=== PATIENT | male | born 2000 ===

== ENCOUNTER 2022-10-31 13:49 | Outpatient (CLI) | payer BC, SELFPAY ==
[2022-10-31 13:25] LABS: Albumin* 4.6 g/dL (3.3-5.0); Chloride* 108 mmol/L (96-114); Sodium* 140 mmol/L (135-149)
[2022-10-31 13:26] LABS: Potassium* 4.8 mmol/L (3.6-5.1)
[2022-10-31 13:28] LABS: Alanine Aminotransferase* 31 U/L (4-50); Alkaline Phosphatase* 63 U/L (40-150); Aspartate Amino Transferase* 26 U/L (12-35); Bilirubin Total* 1.1 mg/dL (0.1-1.5); Blood Urea Nitrogen* 19 mg/dL (5-24); Carbon Dioxide* 23 mmol/L (20-32); Cholesterol* 188 mg/dL (90-199); Creatinine* 0.7 mg/dL (0.5-1.5); Estimated Glomerular Filt Rate 134 ml/min; Glucose* 92 mg/dL (60-115); Total Protein* 7.3 g/dL (6.0-8.3); Triglycerides* 127 mg/dL (40-149)
[2022-10-31 13:29] LABS: Calcium* 9.4 mg/dL (8.4-10.6); HDL Cholesterol* 49 mg/dL (>=40); LDL Cholesterol Calculated 114 mg/dL (<100)
== END 2022-10-31 13:50 | disposition home or self-care (01) ==
PROVIDERS: PCP Family Medicine; Visit Provider Family Medicine
DX: Z00.00 Encounter for general adult medical examination without abnormal findings (principal); R10.9 Unspecified abdominal pain; R53.83 Other fatigue; E66.01 Morbid (severe) obesity due to excess calories
CPT/HCPCS: 80053; 80061; 84443